=== PATIENT | female | born 1940 ===

== ENCOUNTER 2017-07-18 06:31 | Inpatient (IN) | payer MEDICARE ==
[2017-07-17 11:27] VITALS: BMI 23.8
[2017-07-18] MEDS ORDERED: Ropivacaine 0.5% 30ML IV ONE (07:03)
[2017-07-18] MEDS ORDERED: Propofol 10 mg/ml Inj (20 ML) ONE (07:06)
[2017-07-18] MEDS ORDERED: Succinylcholine 200 mg/10 ml Inj IV ONE (07:06)
[2017-07-18] MEDS ORDERED: Lidocaine 4% (Laryng-O-Jet) Kit MM ONE (07:06)
[2017-07-18] MEDS ORDERED: Etomidate 20 mg/10ml Inj IV ONE (07:07)
[2017-07-18] MEDS ORDERED: Phenylephrine 10 mg/ml Inj ONE (07:10)
[2017-07-18] MEDS ORDERED: Thrombin Topical 5,000 IU Spray Kit ONE (07:13)
[2017-07-18] MEDS ORDERED: Absorbable Gelatin Sponge Size 100 ONE (07:13)
[2017-07-18] MEDS ORDERED: Bacitracin Ointment 30 GM TUBE ONE (07:13)
[2017-07-18] MEDS ORDERED: Lactated Ringer's 1,000 ML IV ONE ×2 (07:45→11:15)
[2017-07-18] MEDS ORDERED: Sodium Chloride 0.9% 500 ML IV ONE (07:50)
[2017-07-18] MEDS ORDERED: Rocuronium 10 mg/ml (5 ml) ONE (08:30)
[2017-07-18] MEDS ORDERED: Neostigmine Methylsulfate 3mg/3ml Syringe IV ONE (09:17)
[2017-07-18] MEDS ORDERED: HYDROmorphone 0.5 mg/0.5 ml ISec IVP PRN (11:29)
--- NOTE | 2017-07-18 11:32 | PCM.ANESB2 ---
Popliteal Nerve Block - Popliteal Nerve Block Date of Procedure: 07/18/17 Anesthesiologist: Son Pre-Procedure Diagnosis: Left Knee OA Post-Procedure Diagnosis: same Procedure Performed: Popliteal Nerve Block Left - Procedure Popliteal Nerve Block: This procedure was explained to the patient that it is for post-operative pain management. Consent was obtained after a thorough discussion with the patient regarding the benefits and possible complications of local anesthetic block of the sciatic nerve at the popliteal level. The patient was brought to the operating room and standard monitors are applied. Time-out was held with the circulating nurse to confirm the correct surgery and the appropriate block. Under general anesthesia, patient's operative leg was gently raised and supported and the groove in between the biceps femoris and vastus lateralis muscles was carefully palpated. The skin approximately 8cm above the popliteal crease was then marked. The ultrasound transducer was then applied to the posterior thigh approximately 8cm above the popliteal crease in the transverse plane and the sciatic nerve before its division was visualized lateral to the popliteal artery and in between the bicep femoris and semimembranosus/ semitendinosus muscles. After identification, the lateral portion of the thigh was prepped with Chloraprep. At this point, a # 21 gauge Stimuplex insulated 4 inch needle was inserted into pre-marked area and advanced in a perpendicular direction. The needle was inserted above the ultrasound transducer in-plane towards the sciatic nerve in a [id number] direction. Needle advancement was performed carefully under direct ultrasound visualization. Nerve stimulator was used and dorsiflexion of the ___left__ foot was elicited at a current of __0.4___ MA. After repeated negative aspiration, __2___cc of ___0.375__ % ropivicaine was injected and this was flowed with ___15___ cc of ___0.375___% _ropivicaine . Under ultrasound guidance the local anesthetics were observed tenting the epidural sheath and surrounding the roots of the sciatic nerve. The needle was removed intact and sterile dressing was applied. The patient tolerated the popliteal nerve block well with stable vital signs and was subsequently prepared for the surgery.
--- NOTE | 2017-07-18 11:34 | PCM.ANESB3 ---
Femoral Nerve Block - Femoral Nerve Block Date of Procedure: 07/18/17 Anesthesiologist: Son Pre-Procedure Diagnosis: Left KNee OA Post-Procedure Diagnosis: Same Procedure Performed: Femoral Nerve Block Left - Procedure Femoral Nerve Block: The procedure was explained to the patient that it is for the post-operative pain management. Consent was obtained after a thorough discussion with the patient regarding the benefits and possible complications of local anesthetic block of the femoral nerve at the inguinal crease area. The patient was brought to the operating room and standard monitors were applied. Time-out was held with the circulating nurse to confirm the correct surgery and the appropriate block. Under general anesthesia, patient was placed in supine position with fully extended lower extremities and the ____left____ groin exposed. The femoral artery was then carefully palpated. The ultrasound transducer was then applied to this area in the transverse plane and the femoral nerve was visualized lateral to the femoral artery and underneath the fascia iliaca. After thorough identification, the inguinal crease area was prepped with Chloraprep. At this point, a #22 gauge Stimuplex 4-inch needle was inserted immediately lateral to the femoral artery pulse at the inguinal crease and advanced perpendicularly. The needle was inserted to the ultrasound transducer in-plane towards the femoral nerve in a [id number] direction. Needle advancement was performed carefully under direct ultrasound visualization. Nerve stimulator was used and twitch of the quadriceps muscle was obtained at current of __0.4___ MA. After negative aspiration, __2___cc of _0.375____% ropivicaine was injected and this was followed with __15____ cc of ___0.375____ % ___ _ropivicaine . Under ultrasound guidance the local anesthetics were observed spreading below fascia iliaca and around the femoral nerve. The needle was removed intact and sterile dressing was applied. The patient tolerated the femoral nerve block well with stable vital signs and was prepared for subsequent surgery.
--- NOTE | 2017-07-18 11:37 | PCM.SURG1 ---
Surgeon's Initial Post Op Note - Surgeon's Notes Surgeon: Vish [employer] Worker: CHANEL Romero Type of Anesthesia: General Endo Anesthesia Administered By: DR Tevin Bustos Pre-Operative Diagnosis: Severe tricompartmental O/A L Knee Operative Findings: as above. tricompartmental synovitis. looses bodies. postrerior capsual contracture. lateral patella contracture Post-Operative Diagnosis: as above Operation Performed: L TKR. arthrotomy/excision loose bodies. posterior capsular release. lateral patella release. anterior and posterior synovectomy Specimen/Specimens Removed: cartilage/synovium/bone Estimated Blood Loss: EBL {In ML}: 55 Blood Products Given: N/A Drains Used: No Drains Post-Op Condition: Good Date of Surgery/Procedure: 07/18/17 Time of Surgery/Procedure: 08:50 (time in room/anaesthesia induction time- 7:45)
--- NOTE | 2017-07-18 14:48 | CP.PCM.HP ---
History of Present Illness - History of Present Illness History of Present Illness: CC: for L TKR HPI: 77 year old female with PMH HTN and OA. Patient for L TKR after failing conservative treatment as outpatient. No complaints at this time. She is s/p L TKR. HD stable, NAD. ROS: per HPI, 12 systems reviewed and negative PMH: HTN, OA PSH: Appendectomy FH: denies SH: denies tobacco, ETOH, IVDU Meds: as below Allergies: NKDA Vitals: reviewed and currently stable Temp Pulse Resp BP Pulse Ox 97.7 F 72 18 115/67 100 07/18/17 11:25 07/18/17 13:10 07/18/17 13:10 07/18/17 13:10 07/18/17 13:10 Exam: GEN: WDWN, alert, cooperative HEENT: NCAT, PERRL, EOMI NECK: supple, no JVD, no lymphadenopathy CARDIAC: +S1S2 RRR LUNG: CTAB No WRR ABD: SOFT NT ND BSX4 NO MASSES NO HSM EXT: +pedal pulses, dressings in place NEURO: AAOx3 SKIN warm, dry PSYCH normal mood, normal affect Labs: reviewed and in chart Active Medications: Allergies No Known Allergies Allergy (Verified 07/17/17 11:27) Height & Weight Height 4 ft 6 in Weight 99 lb Start Date/Time Active Medications 07/18/17 11:30 Sodium Chloride 0.9% 1,000 ml IV 50 mls/hr 07/18/17 14:38 oxyCODONE/Acetaminophen [Percocet 5/325 mg Tab] 1 tab PO Q4 PRN 07/19/17 09:00 Lisinopril [Zestril] 20 mg PO DAILY Assessment and Plan: 77 year old female with PMH HTN and OA. Patient for L TKR after failing conservative treatment as outpatient. No complaints at this time. She is s/p L TKR. HD stable, NAD. S/P L TKR 2/2 OA Failed outpatient therapy incentive spirometry PT/OT Pain control Ancef 2 more doses repeat labs in AM Hypertension continue Lisinopril Cardiology consult: Dr. Haines VTE ppx per orthopedic surgery Present on Admission - Present on Admission Any Indicators Present on Admission: No Past Patient History - Past Medical History & Family History Past Medical History?: Yes - Past Social History Smoking Status: Never Smoked - CARDIAC Hx Cardiac Disorders: Yes Hx Hypertension: Yes - PULMONARY Hx Respiratory Disorders: No - NEUROLOGICAL Hx Neurological Disorder: No - HEENT Hx HEENT Problems: No - RENAL Hx Chronic Kidney Disease: No - ENDOCRINE/METABOLIC Hx Endocrine Disorders: No - HEMATOLOGICAL/ONCOLOGICAL Hx Blood Disorders: No Hx Anemia: No Hx Blood Transfusions: No - INTEGUMENTARY Hx Dermatological Problems: No - MUSCULOSKELETAL/RHEUMATOLOGICAL Hx Musculoskeletal Disorders: Yes Hx Arthritis: Yes Hx Back Pain: Yes Hx Falls: No Hx Rheumatoid Arthritis: Yes - GASTROINTESTINAL Hx Gastrointestinal Disorders: No - GENITOURINARY/GYNECOLOGICAL Hx Genitourinary Disorders: No - PSYCHIATRIC Hx Emotional Abuse: No Hx Physical Abuse: No - SURGICAL HISTORY Hx Surgeries: Yes Hx Appendectomy: Yes - ANESTHESIA Hx Anesthesia: Yes Hx Anesthesia Reactions: No Hx Malignant Hyperthermia: No Has any member of the family had a problem w/ anesthesia?: No Meds Allergies/Adverse Reactions: Allergies Allergy/AdvReac Type Severity Reaction Status Date / Time No Known Allergies Allergy Verified 07/17/17 11:27 Results - Vital Signs Recent Vital Signs: Last Vital Signs Temp 97.7 F 07/18/17 11:25 Pulse 72 07/18/17 13:10 Resp 18 07/18/17 13:10 BP 115/67 07/18/17 13:10 Pulse Ox 100 07/18/17 13:10 - Labs Labs: Laboratory Results - last 24 hr 07/18/17 07/18/17 07/18/17 06:50 07:45 11:46 POC Glucose (mg/dL) 129 H Blood Type O POSITIVE Blood Type Confirm O POSITIVE Antibody Screen Negative Crossmatch See Detail BBK History Checked No verified bt
--- NOTE | 2017-07-18 15:21 | RAD ---
PROCEDURE: Left Knee Radiographs. HISTORY: Pain. COMPARISON: None. FINDINGS: BONES: Bone alignment is normal. There is no acute displaced fracture or bone destruction. JOINTS: Status post total cemented knee arthroplasty. JOINT EFFUSION: None. OTHER FINDINGS: There are postsurgical changes in the periarticular soft tissues. There anterior skin maki. Atherosclerotic vascular calcifications are identified. IMPRESSION: Status post total cemented knee arthroplasty, no evidence of acute complications.
[2017-07-18] MEDS: Sodium Chloride 0.9% 1,000 ML IV SCH (15:40)
[2017-07-18] MEDS ORDERED: ceFAZolin 2 GM in Sodium Chloride 0.9% 100 ML IVPB SCH (17:00)
[2017-07-18] MEDS: ceFAZolin 1 GM in Sodium Chloride 0.9% 100 ML IVPB SCH (17:46)
[2017-07-18] MEDS: Oxycodone/Acetaminophen 5/325 mg Tab PO PRN ×2 (18:38→23:10)
[2017-07-18] MEDS ORDERED: Alum-Mag Hydrox-Simethicone Susp (30 mL) PO ONE (23:17)
[2017-07-19] MEDS: ceFAZolin 1 GM in Sodium Chloride 0.9% 100 ML IVPB SCH (00:33)
[2017-07-19 06:16] LABS: BASO # 0.1 K/uL (0.0-0.2); BASO % 0.6 % (0.0-2.0); EOS % 0.1 % (0.0-4.0); HEMATOCRIT 30.8 % (34.0-47.0); LYMPH # 2.1 K/uL (1.0-4.3); MEAN CELL VOLUME 83.9 fl (81.0-99.0); MEAN CORPUSCULAR HEMOGLOBIN 27.5 pg (27.0-31.0); MEAN CORPUSCULAR HGB CONC 32.8 g/dL (33.0-37.0); MEAN PLATELET VOLUME 9.1 fl (7.2-11.7); MONO # 1.3 K/uL (0.0-0.8); MONO % 14.7 % (0.0-10.0); NEUT # 5.3 K/uL (1.8-7.0); NEUT % 60.6 % (50.0-75.0); RED CELL DISTRIBUTION WIDTH 14.6 % (11.5-14.5); WHITE BLOOD COUNT 8.7 K/uL (4.8-10.8)
[2017-07-19 06:33] LABS: BLOOD UREA NITROGEN 13 mg/dl (7-17); CARBON DIOXIDE 26 mmol/L (22-30); CHLORIDE 104 mmol/L (98-107); GFR AFRICAN-AMERICAN > 60; GLUCOSE,RANDOM 109 mg/dL (65-105); POTASSIUM 3.3 MMOL/L (3.6-5.0); SODIUM 138 mmol/l (132-148)
--- NOTE | 2017-07-19 08:12 | CP.PCM.PN ---
Subjective - Date & Time of Evaluation Date of Evaluation: 07/19/17 Time of Evaluation: 08:10 - Subjective Subjective: S- pt comfortable/miinmal post op discomfort Objective - Vital Signs/Intake and Output Vital Signs (last 24 hours): Temp Pulse Resp BP Pulse Ox 98.4 F 65 20 123/80 94 L 07/19/17 08:03 07/19/17 08:03 07/19/17 08:03 07/19/17 08:03 07/19/17 08:03 - Medications Medications: Current Medications Sodium Chloride (Sodium Chloride 0.9%) 1,000 mls @ 50 mls/hr IV .Q20H [place] Last Admin: 07/18/17 15:40 Dose: 0 mls Lisinopril (Zestril) 20 mg PO DAILY [place] Ondansetron HCl (Zofran Inj) 4 mg IVP Q6 PRN PRN Reason: Nausea/Vomiting Oxycodone/Acetaminophen (Percocet 5/325 Mg Tab) 1 tab PO Q4 PRN PRN Reason: Pain, moderate (4-7) Stop: 07/21/17 14:39 Last Admin: 07/18/17 23:10 Dose: 1 tab - Labs Labs: 07/19/17 05:15 07/19/17 05:15 - Additional Findings Additional findings: Objective systemic-wnl Musculoskeletal stance/gait- defrred dressing dry andf intact Imp- orthopedically stable Assessment and Plan - Assessment and Plan (Free Text) Assessment: A- orthopedically stabl;e P- full weigth bearing physio
[2017-07-19] MEDS: Sodium Chloride 0.9% 1,000 ML IV SCH (08:35)
--- NOTE | 2017-07-19 08:37 | OP ---
PROCEDURE DATE: 07/18/2017 PREOPERATIVE DIAGNOSIS: Garden I to II subcapital fracture of the left femur. POSTOPERATIVE DIAGNOSES: 1. Garden I/Garden II subcapital left femur fracture. 2. Posttraumatic arthritis of the left hip, status post open reduction and internal fixation left acetabular fracture. 3. Closed manipulation of the fracture. 4. Positioning of fluoroscope, interpretation, and video images. SURGEON: Toni Wahl MD SOAKING TANK WORKER: TALHA Paul, certified registered nursing registered nurse first assistant. TYPE OF ANESTHESIA: General endotracheal anesthesia. ANESTHESIA ADMINISTERED BY: Tevin Cline MD COMPLICATIONS: No complications. DRAINS: No drains. INCISION TIME: Toni Wahl MD
[2017-07-19] MEDS: Oxycodone/Acetaminophen 5/325 mg Tab PO PRN ×4 (08:45→20:24)
[2017-07-19] MEDS ORDERED: Potassium Chloride 20 mEq ER Tab PO ONE (09:30)
--- NOTE | 2017-07-19 11:30 | CP.PCM.PN ---
Subjective - Date & Time of Evaluation Date of Evaluation: 07/19/17 Time of Evaluation: 10:00 - Subjective Subjective: Patient No fever post op pain controlleddenies CP no SOB no abd pain Objective - Vital Signs/Intake and Output Vital Signs (last 24 hours): Temp Pulse Resp BP Pulse Ox 98.4 F 87 20 119/69 94 L 07/19/17 08:03 07/19/17 09:59 07/19/17 08:03 07/19/17 09:59 07/19/17 08:03 - Medications Medications: Current Medications Sodium Chloride (Sodium Chloride 0.9%) 1,000 mls @ 50 mls/hr IV .Q20H [facility] Last Admin: 07/19/17 08:35 Dose: Not Given Lisinopril (Zestril) 20 mg PO DAILY [facility] Last Admin: 07/19/17 08:43 Dose: 20 mg Ondansetron HCl (Zofran Inj) 4 mg IVP Q6 PRN PRN Reason: Nausea/Vomiting Oxycodone/Acetaminophen (Percocet 5/325 Mg Tab) 1 tab PO Q4 PRN PRN Reason: Pain, moderate (4-7) Stop: 07/21/17 14:39 Last Admin: 07/19/17 08:45 Dose: 1 tab - Labs Labs: 07/19/17 05:15 07/19/17 05:15 - Constitutional Appears: No Acute Distress - Head Exam Head Exam: NORMAL INSPECTION, NORMOCEPHALIC - Eye Exam Eye Exam: EOMI, Normal appearance Pupil Exam: absent: NORMAL ACCOMODATION - ENT Exam ENT Exam: Mucous Membranes Moist, Normal External Ear Exam - Neck Exam Neck Exam: Full ROM. absent: Meningismus - Respiratory Exam Respiratory Exam: NORMAL BREATHING PATTERN. absent: Respiratory Distress - Cardiovascular Exam Cardiovascular Exam: REGULAR RHYTHM, +S1, +S2 - GI/Abdominal Exam GI & Abdominal Exam: Soft, Normal Bowel Sounds. absent: Tenderness - Extremities Exam Extremities Exam: Normal Capillary Refill. absent: Calf Tenderness, Pedal Edema Additional comments: left knee with dressing - Back Exam Back Exam: Full ROM. absent: CVA tenderness (L), CVA tenderness (R) - Neurological Exam Neurological Exam: Alert, Awake, CN II-XII Intact, Oriented x3 Neuro motor strength exam: Left Upper Extremity: 5, Right Upper Extremity: 5, Right Lower Extremity: 5 - Psychiatric Exam Psychiatric exam: Normal Affect, Normal Mood - Skin Skin Exam: Dry, Normal Color, Warm Assessment and Plan (1) S/P TKR (total knee replacement) Status: Acute (2) HTN (hypertension) Status: Chronic (3) Rheumatoid arthritis Status: Chronic (4) DVT prophylaxis Status: Acute - Assessment and Plan (Free Text) Assessment: 77 y/o with hx of RA, HTN, admitted for scheduled Left TKR after failing conservative outpt tx. (1) S/P Left TKR (total knee replacement) Status: Acute Ortho: Dr Wahl Pain mgt- cont Percocet PT/OT consult- plan for NEW (2) HTN (hypertension) Status: Chronic cont Lisinopril (3) Rheumatoid arthritis Status: Chronic follows up with [facility] as outpt on Prednisone as outpt- will hold for now Pain mgt (4) DVT prophylaxis Status: Acute ASA 81 mg bid
--- NOTE | 2017-07-19 12:18 | CP.PCM.CON ---
History of Present Illness - History of Present Illness History of Present Illness: THE PATIENT IS A 77 YEAR OLD FEMALE WHO HAS SEVERE OA WITH LEFT KNEE OA NOT RESPONING TO CONSERVATIVE TREATMENT WHO UNDERWENT A LEFT TKR BY DR ZAVALA YESTERDAY. SHE ALSO HAS A HISTORY OF HYPERTENSION. SHE DENIES ANY OTHER KNOWN MEDICAL PROBLEMS SUCH CAD, COPD OR DM. I WAS ASKED BY DR ZAVALA TO SEE AND FOLLOW THIS PATIENT IN THE HOSPITAL. SHE DENIES CHEST PAIN OR SOB. Past Patient History - Past Medical History & Family History Past Medical History?: Yes - Past Social History Smoking Status: Never Smoked - CARDIAC Hx Hypertension: Yes - PULMONARY Hx Respiratory Disorders: No - NEUROLOGICAL Hx Neurological Disorder: No - HEENT Hx HEENT Problems: No - RENAL Hx Chronic Kidney Disease: No - ENDOCRINE/METABOLIC Hx Endocrine Disorders: No - HEMATOLOGICAL/ONCOLOGICAL Hx Blood Disorders: No Hx Anemia: No Hx Blood Transfusions: No - INTEGUMENTARY Hx Dermatological Problems: No - MUSCULOSKELETAL/RHEUMATOLOGICAL Hx Arthritis: Yes Hx Rheumatoid Arthritis: Yes - GASTROINTESTINAL Hx Gastrointestinal Disorders: No - GENITOURINARY/GYNECOLOGICAL Hx Genitourinary Disorders: No - PSYCHIATRIC Hx Emotional Abuse: No Hx Physical Abuse: No - SURGICAL HISTORY Hx Surgeries: Yes Hx Appendectomy: Yes - ANESTHESIA Hx Anesthesia: Yes Hx Anesthesia Reactions: No Hx Malignant Hyperthermia: No Has any member of the family had a problem w/ anesthesia?: No Meds Allergies/Adverse Reactions: Allergies Allergy/AdvReac Type Severity Reaction Status Date / Time No Known Allergies Allergy Verified 07/17/17 11:27 - Medications Medications: Current Medications Aspirin (Ecotrin) 81 mg PO BID [place] Docusate Sodium (Colace) 100 mg PO BID [facility] Ferrous Sulfate (Feosol) 325 mg PO BID [facility] Sodium Chloride (Sodium Chloride 0.9%) 1,000 mls @ 50 mls/hr IV .Q20H [facility] Last Admin: 07/19/17 08:35 Dose: Not Given Lisinopril (Zestril) 20 mg PO DAILY [facility] Last Admin: 07/19/17 08:43 Dose: 20 mg Morphine Sulfate (Morphine) 1 mg IVP Q4 PRN PRN Reason: Pain, severe (8-10) Ondansetron HCl (Zofran Inj) 4 mg IVP Q6 PRN PRN Reason: Nausea/Vomiting Oxycodone/Acetaminophen (Percocet 5/325 Mg Tab) 1 tab PO Q4 PRN PRN Reason: Pain, moderate (4-7) Stop: 07/21/17 14:39 Last Admin: 07/19/17 11:45 Dose: 1 tab Physical Exam - Respiratory Exam Respiratory Exam: Clear to Auscultation Bilateral - Cardiovascular Exam Cardiovascular Exam: REGULAR RHYTHM, +S1, +S2 - Additional Findings Additional findings: ORHOPEDIC POST-OP NOTE REVIEWED K+ 3.3 Results - Vital Signs Recent Vital Signs: Last Vital Signs Temp 98.4 F 07/19/17 08:03 Pulse 87 07/19/17 09:59 Resp 20 07/19/17 08:03 BP 119/69 07/19/17 09:59 Pulse Ox 94 L 07/19/17 08:03 - Labs Result Diagrams: 07/19/17 05:15 07/19/17 05:15 Labs: Laboratory Results - last 24 hr 07/19/17 07/19/17 05:15 05:15 WBC 8.7 RBC 3.67 L Hgb 10.1 L Hct 30.8 L MCV 83.9 MCH 27.5 MCHC 32.8 L RDW 14.6 H Plt Count 162 MPV 9.1 Neut % (Auto) 60.6 Lymph % (Auto) 24.0 [place] % (Auto) 14.7 H Eos % (Auto) 0.1 Baso % (Auto) 0.6 Neut # 5.3 Lymph # 2.1 [place] # 1.3 H Eos # 0.0 Baso # 0.1 Sodium 138 Potassium 3.3 L Chloride 104 Carbon Dioxide 26 Anion Gap 11 BUN 13 Creatinine 0.9 Est GFR ( Amer) > 60 Est GFR (Non-Af Amer) > 60 Random Glucose 109 H Calcium 8.0 L Assessment & Plan - Assessment and Plan (Free Text) Assessment: S/P TOTAL LKR HYPERTENSION HYPOKALEMIA Plan: CONTINUE ASPIRIN, LISINOPRIL AND PAIN MEDS PATIENT GIVEN KCL BMP IN AM
[2017-07-19] MEDS: Pantoprazole 40 mg EC Tab PO SCH (16:27)
[2017-07-19 16:56] VITALS: O2SAT 95
--- NOTE | 2017-07-19 18:51 | OP ---
DATE OF SURGERY: 07/18/2017 PREOPERATIVE DIAGNOSES: Severe tricompartmental osteoarthritis of left knee and severe varus deformity. POSTOPERATIVE DIAGNOSES: 1. Loose bodies. 2. Severe varus deformity. 3. Severe tricompartmental osteoarthritis. 4. Posterior capsular contracture. 5. Lateral retinacular contracture. 6. Synovitis, anterior and posterior. OPERATIVE PROCEDURES: 1. Left total knee replacement arthroplasty. 2. Posterior capsular release. 3. Lateral patellar retinacular release. 4. Anterior and posterior synovectomy. 5. Computer navigation. SURGEON: Toni Wahl MD CATERING SOUS CHEF: Charisse Roberson, certified registered nursing director of first impressions. SECOND PRODUCTION TEAM MANAGER: Dick Mendoza. ESTIMATED BLOOD LOSS: Approximately 100 mL. No complications. No drains. OPERATIVE INDICATION: Ashlyn Boss is a patient who is well-known to my practice who presents having failed conservative management of osteoarthritis. Pros, cons, risks, and benefits of surgical approach were discussed with the patient in the presence of her daughters with counseling and competent network design architect. Possibility of mechanical failure, infection, thromboembolic disease, secondary or tertiary surgery were discussed. The patient can only understand the discomfort and wishes the surgery to be accomplished. DESCRIPTION OF PROCEDURE: After having obtained informed consent, after having identified site, side, and procedure, and a critical pause/time-out after satisfactory induction of the anesthetic, the patient identified as Ashlyn Boss, in the supine position with all bony prominences were well padded. The left lower extremity was prepped and free draped in usual fashion for lower extremity surgery. Tourniquet had been applied but is not yet inflated. After exsanguinating the limb using a 6-inch Esmarch bandage, the tourniquet which had been applied was inflated to 350 mmHg. A straight midline approach was made to the knee. The skin incision was carried down to the skin and subcutaneous tissue. Medial arthrotomy was accomplished. The patella was everted. The knee was flexed. Medial and lateral meniscectomies were accomplished. Anterior and posterior cruciate ligaments were excised. The tibia was dislocated anteriorly and initial osteotomy was accomplished on the tibial side. Computer navigation commenced at this point in time. The anterior strut was placed on the anterior aspect of tibia and the offset was set with the stylus at the posterior insertion of the anterior cruciate ligament. The medial malleolus was registered and lateral malleolus. The tibial cut was set at 0 degrees varus valgus and 3 degrees of posterior slope. This having been accomplished, the proximal tibia was prepared. Guidance to rotation of the tibia on the lateral aspect with tibial condyle, mid malleolar access, medial third of the tibial tuberosity. Attention was turned to the femur. Navigation was employed as well for 0 degrees varus valgus cut, 0.5 degrees of flexion. The guidepin was placed above the intercondylar notch. The distal cutting guide was placed and pinned. Accelerometer and sensor were placed. The hip center was registered. The distal cut was set to 9 mm. The distal osteotomy was accomplished. Anterior-posterior sizing was 1 to 1.5 size in the sphere system. This having been accomplished, the 4:1 block was affixed to distal aspect of the finger. Anterior and posterior cruciate ligaments were excised. Chamfer cuts were accomplished as well as anterior and posterior osteotomies. Anterior and posterior osteotomies having been accomplished, chamfer cuts having been accomplished, the planer was set and the planing was accomplished. Femoral trial was accomplished with the tibial plate, #1.5 femur, 5.2 tibia and a 17 mm medial sphere insert. This having been accomplished, the wound was thoroughly irrigated. Anterior and posterior synovectomies having been accomplished, a posterior capsule was released. There was found to be a posterior capsular contracture. Prior to trialing, the laminar plow and boring machine tender was placed and the posterior capsule was elevated from the posterior aspect of the femur. Hemostasis was controlled with the Aquamantys. This having been accomplished, the wound was thoroughly irrigated. Anterior and posterior synovectomy was accomplished. Medial and lateral meniscectomies had been accomplished. Trialing was accomplished, flexion and extension balance was excellent. This having been accomplished, there was found to be a lateral patellar retinacular contracture. A lateral patellar retinacular release was accomplished from inside out. Hemostasis was controlled with the Aquamantys. Patella was sized to 32 mm. The patella was reamed and placed. The wound was thoroughly irrigated. Patella balance was found to be excellent. Flexion and extension balance was found to be excellent. The femur, tibia and patella were prepared. The #2 cemented tibial component was applied. The #1.5 femoral component was applied. A 17 mm medial tibial insert was inserted and the patella was cemented as well. The wound was thoroughly irrigated. Tourniquet was deflated. Hemostasis was controlled with the Aquamantys and with the electrocautery. This having been accomplished, the wound was thoroughly irrigated. Closure was in layers with #2 Ethibond, #1 Vicryl, 0 Vicryl, 2-0 Vicryl and maki for skin, Uzair Edwards compression dressing and knee immobilizer were applied. Toni Wahl MD
[2017-07-20] MEDS: Sodium Chloride 0.9% 1,000 ML IV SCH (03:00)
[2017-07-20 07:35] VITALS: BP 137/77; RESP 18
[2017-07-20 08:05] LABS: BLOOD UREA NITROGEN 8 mg/dl (7-17); GFR AFRICAN-AMERICAN > 60; GLUCOSE,RANDOM 119 mg/dL (65-105); POTASSIUM 3.7 MMOL/L (3.6-5.0); SODIUM 137 mmol/l (132-148)
[2017-07-20 08:06] LABS: CALCIUM 8.4 mg/dL (8.4-10.2); CARBON DIOXIDE 24 mmol/L (22-30); CHLORIDE 104 mmol/L (98-107)
[2017-07-20] MEDS: Oxycodone/Acetaminophen 5/325 mg Tab PO PRN (08:32)
[2017-07-20] MEDS: Pantoprazole 40 mg EC Tab PO SCH (08:32)
[2017-07-20 08:34] VITALS: PULSE 102
[2017-07-20 08:38] VITALS: TEMP 99.8
[2017-07-20] MEDS ORDERED: Sodium Chloride 0.9% 250 ML IV SCH (09:00)
--- NOTE | 2017-07-20 10:27 | CP.PCM.DIS ---
Provider - Provider Date of Admission: 07/18/17 14:38 Attending physician: Marcela Ahn DO Primary care physician: Toni Wahl III, MD Consults: Ortho: Dr Wahl Cardio : Dr Haines Time Spent in preparation of Discharge (in minutes): 25 Diagnosis - Discharge Diagnosis (1) S/P TKR (total knee replacement) Status: Acute (2) HTN (hypertension) Status: Chronic (3) Rheumatoid arthritis Status: Chronic (4) DVT prophylaxis Status: Acute Hospital Course - Lab Results Lab Results: Most Recent Lab Values WBC 8.7 K/uL (4.8-10.8) 07/19/17 05:15 RBC 3.67 Mil/uL (3.80-5.20) L 07/19/17 05:15 Hgb 10.1 g/dL (12.0-16.0) L 07/19/17 05:15 Hct 30.8 % (34.0-47.0) L 07/19/17 05:15 MCV 83.9 fl (81.0-99.0) 07/19/17 05:15 MCH 27.5 pg (27.0-31.0) 07/19/17 05:15 MCHC 32.8 g/dL (33.0-37.0) L 07/19/17 05:15 RDW 14.6 % (11.5-14.5) H 07/19/17 05:15 Plt Count 162 K/uL (130-400) 07/19/17 05:15 MPV 9.1 fl (7.2-11.7) 07/19/17 05:15 Neut % (Auto) 60.6 % (50.0-75.0) 07/19/17 05:15 Lymph % (Auto) 24.0 % (20.0-40.0) 07/19/17 05:15 Placer % (Auto) 14.7 % (0.0-10.0) H 07/19/17 05:15 Eos % (Auto) 0.1 % (0.0-4.0) 07/19/17 05:15 Baso % (Auto) 0.6 % (0.0-2.0) 07/19/17 05:15 Neut # 5.3 K/uL (1.8-7.0) 07/19/17 05:15 Lymph # 2.1 K/uL (1.0-4.3) 07/19/17 05:15 Placer # 1.3 K/uL (0.0-0.8) H 07/19/17 05:15 Eos # 0.0 K/uL (0.0-0.7) 07/19/17 05:15 Baso # 0.1 K/uL (0.0-0.2) 07/19/17 05:15 Sodium 137 mmol/l (132-148) 07/20/17 05:30 Potassium 3.7 MMOL/L (3.6-5.0) 07/20/17 05:30 Chloride 104 mmol/L (98-107) 07/20/17 05:30 Carbon Dioxide 24 mmol/L (22-30) 07/20/17 05:30 Anion Gap 12 (10-20) 07/20/17 05:30 BUN 8 mg/dl (7-17) 07/20/17 05:30 Creatinine 0.8 mg/dL (0.7-1.2) 07/20/17 05:30 Est GFR ( Amer) > 60 07/20/17 05:30 Est GFR (Non-Af Amer) > 60 07/20/17 05:30 POC Glucose (mg/dL) 129 mg/dL (65-110) H 07/18/17 11:46 Random Glucose 119 mg/dL (65-105) H 07/20/17 05:30 Calcium 8.4 mg/dL (8.4-10.2) 07/20/17 05:30 Blood Type O POSITIVE 07/18/17 06:50 Blood Type Confirm O POSITIVE 07/18/17 07:45 Antibody Screen Negative 07/18/17 06:50 Crossmatch See Detail 07/18/17 06:50 BBK History Checked No verified bt 07/18/17 06:50 - Hospital Course Hospital Course: 77 y/o with hx of RA, HTN, admitted for scheduled Left TKR after failing conservative outpt tx. Pt underwent Left TKR . No complications. Pt did well post op, participated with PT. Pain controlled. will d/c pt to [facility] for further PT. (1) S/P Left TKR (total knee replacement) Status: Acute Ortho: Dr Boiardo Pain mgt- cont Percocet- pain controlled PT/OT consulted will d/c to [facility] today (2) HTN (hypertension) controlled Status: Chronic cont Lisinopril (3) Rheumatoid arthritis Status: Chronic follows up with [facility] as outpt on Prednisone as outpt Pain mgt (4) DVT prophylaxis Status: Acute ASA 81 mg bid Discharge Exam - Head Exam Head Exam: NORMAL INSPECTION, NORMOCEPHALIC - Eye Exam Eye Exam: EOMI, Normal appearance Pupil Exam: NORMAL ACCOMODATION - ENT Exam ENT Exam: Mucous Membranes Moist, Normal External Ear Exam - Neck Exam Neck exam: Full Rom - Respiratory Exam Respiratory Exam: NORMAL BREATHING PATTERN. absent: Respiratory Distress - Cardiovascular Exam Cardiovascular Exam: REGULAR RHYTHM, +S1, +S2 - GI/Abdominal Exam GI & Abdominal Exam: Normal Bowel Sounds, Soft. absent: Tenderness - Extremities Exam Extremities exam: normal capillary refill, pedal pulses present Additional comments: no calf tenderness Left knee with immobilizer - Back Exam Back exam: FULL ROM. absent: CVA tenderness (L), CVA tenderness (R) - Neurological Exam Neurological exam: Alert, CN II-XII Intact, Oriented x3, Reflexes Normal - Psychiatric Exam Psychiatric exam: Normal Affect, Normal Mood - Skin Skin Exam: Dry, Normal Color, Warm Discharge Plan - Follow Up Plan Condition: GOOD Disposition: TRANSF TO SNF Instructions: Precautions after Total Joint Replacement Surgery (DC), Knee Immobilizer (DC), Joint Replacement Surgery (DC) Additional Instructions: appt with Dr Wahl in 1 wk ff up with PMD mignon Referrals: Toni Wahl III, MD [Primary Care Provider] -
--- NOTE | 2017-07-20 10:40 | CP.PCM.PN ---
Subjective - Date & Time of Evaluation Date of Evaluation: 07/20/17 Time of Evaluation: 10:35 - Subjective Subjective: S-pt with minimal post op discomfort Objective - Vital Signs/Intake and Output Vital Signs (last 24 hours): Temp Pulse Resp BP Pulse Ox 99.8 F H 102 H 18 137/77 95 07/20/17 08:38 07/20/17 08:33 07/20/17 07:34 07/20/17 08:33 07/20/17 07:34 - Medications Medications: Current Medications Aspirin (Ecotrin) 81 mg PO BID [facility] Last Admin: 07/20/17 08:33 Dose: 81 mg Docusate Sodium (Colace) 100 mg PO BID [facility] Last Admin: 07/20/17 08:32 Dose: 100 mg Ferrous Sulfate (Feosol) 325 mg PO BID [facility] Last Admin: 07/20/17 08:33 Dose: 325 mg Sodium Chloride (Sodium Chloride 0.9%) 1,000 mls @ 50 mls/hr IV .Q20H [facility] Last Admin: 07/20/17 03:00 Dose: 50 mls/hr Sodium Chloride (Sodium Chloride 0.9%) 250 mls @ 125 mls/hr IV .Q2H [facility] Lisinopril (Zestril) 20 mg PO DAILY [facility] Last Admin: 07/20/17 08:33 Dose: 20 mg Morphine Sulfate (Morphine) 1 mg IVP Q4 PRN PRN Reason: Pain, severe (8-10) Last Admin: 07/20/17 02:54 Dose: 1 mg Ondansetron HCl (Zofran Inj) 4 mg IVP Q6 PRN PRN Reason: Nausea/Vomiting Oxycodone/Acetaminophen (Percocet 5/325 Mg Tab) 1 tab PO Q4 PRN PRN Reason: Pain, moderate (4-7) Stop: 07/21/17 14:39 Last Admin: 07/20/17 08:32 Dose: 1 tab Pantoprazole Sodium (Protonix Ec Tab) 40 mg PO DAILY [facility] Last Admin: 07/20/17 08:32 Dose: 40 mg - Labs Labs: 07/19/17 05:15 07/20/17 05:30 - Skin Skin Exam: Warm Additional comments: Objective stance./gait-deferred knee dressing dry and intact orthopedically stable Assessment and Plan - Assessment and Plan (Free Text) Assessment: A-s/p TKR P full weiogth bearing excllent progress orthopedically stable
== END 2017-07-20 14:55 | DRG 470 ==
LOC: H.OPSURG 06:31 → H.MEDSURG1 14:38
PROVIDERS: ADMIT Student in an Organized Health Care Education/Training Program; ATTEND Student in an Organized Health Care Education/Training Program
PROC: 0SRD0J9 Replacement of Left Knee Joint with Synthetic Substitute, Cemented, Open Approach (ICD-10-PCS; principal; 2017-07-18 07:45)
PROC: 3E0T3BZ Introduction of Anesthetic Agent into Peripheral Nerves and Plexi, Percutaneous Approach (ICD-10-PCS; 2017-07-18 07:45)
DX: M17.12 Unilateral primary osteoarthritis, left knee (principal); M06.89 Other specified rheumatoid arthritis, multiple sites; E87.6 Hypokalemia; M65.862 Other synovitis and tenosynovitis, left lower leg; M23.42 Loose body in knee, left knee; I10 Essential (primary) hypertension; Z79.82 Long term (current) use of aspirin

== ENCOUNTER 2017-10-17 06:30 | Inpatient (IN) | payer MEDICARE ==
[2017-10-17 06:56] VITALS: BMI 21.4
--- NOTE | 2017-10-17 09:10 | CP.PCM.HP ---
History of Present Illness - History of Present Illness History of Present Illness: CC: for L TKR HPI: 77 year old female with PMH HTN, SLE, RA, Hyperlipidemia, and OA. S/P L total knee with Dr. Vish orellana 3 months ago. Patient for R total knee after failing conservative treatment as outpatient. No complaints at this time. HD stable, NAD. Denies any dyspnea or cp at rest or on exertion. METs >4. ROS: per HPI, 12 systems reviewed and negative PMH: HTN, SLE, RA, Hyperlipidemia, and OA PSH: Appendectomy, s/p L total knee FH: denies SH: denies tobacco, ETOH, IVDU Meds: as below Allergies: NKDA GENERAL APPEARANCE: Well developed, well nourished, alert and cooperative, and appears to be in no acute distress. HEENT: normocephalic, atraumatic PERRL, EOMI. Vision is grossly intact. External auditory canals clear, hearing grossly intact. No nasal discharge. Oral cavity and pharynx normal. No inflammation, swelling, exudate, or lesions. NECK: Neck supple, non-tender without lymphadenopathy, masses or thyromegaly. CARDIAC: Normal S1 and S2. No S3, S4 or murmurs. Rhythm is regular. LUNGS: Clear to auscultation and percussion without rales, rhonchi, wheezing or diminished breath sounds. ABDOMEN: Positive bowel sounds. Soft, nondistended, nontender. No guarding or rebound. No masses. BACK: Examination of the spine reveals no spinal deformity, symmetry of spinal muscles, EXTREMITIES: warm well perfused. NV intact NEUROLOGICAL: Strength and sensation symmetric and intact throughout. Reflexes 2 + throughout. SKIN: Skin normal color, texture and turgor with no lesions or eruptions. PSYCHIATRIC: The patient was oriented to person, place, and time. Normal affect. LABS REVIEWED 77 year old female with PMH HTN, SLE, RA, Hyperlipidemia, and OA. S/P L total knee with Dr. Vish orellana 3 months ago. Patient for R total knee after failing conservative treatment as outpatient. No complaints at this time. HD stable, NAD. Denies any dyspnea or cp at rest or on exertion. METs >4. Pt medically stable for OR, low risk for mod risk procedure. Osteoarthritis R Knee for OR today with Dr. Wahl Continue pain control Incentive spirometer Ancef two more doses PPX PT OT VTE ppx per Ortho HTN continue enalapril RA/SLE continue predisone Present on Admission - Present on Admission Any Indicators Present on Admission: No Past Patient History - Past Medical History & Family History Past Medical History?: Yes - Past Social History Smoking Status: Never Smoked - CARDIAC Hx Cardiac Disorders: Yes Hx Hypertension: Yes - PULMONARY Hx Respiratory Disorders: No - NEUROLOGICAL Hx Neurological Disorder: No - HEENT Hx HEENT Problems: No - RENAL Hx Chronic Kidney Disease: No - ENDOCRINE/METABOLIC Hx Endocrine Disorders: No - HEMATOLOGICAL/ONCOLOGICAL Hx Blood Disorders: No Hx Anemia: No Hx Blood Transfusions: No - INTEGUMENTARY Hx Dermatological Problems: No - MUSCULOSKELETAL/RHEUMATOLOGICAL Hx Musculoskeletal Disorders: Yes Hx Arthritis: Yes Hx Back Pain: Yes Hx Falls: No Hx Herniated Disk: Yes Hx Rheumatoid Arthritis: Yes - GASTROINTESTINAL Hx Gastrointestinal Disorders: No Other/Comment: esophageal hernia - GENITOURINARY/GYNECOLOGICAL Hx Genitourinary Disorders: No - PSYCHIATRIC Hx Psychophysiologic Disorder: No Hx Emotional Abuse: No Hx Physical Abuse: No - SURGICAL HISTORY Hx Surgeries: Yes Hx Appendectomy: Yes Hx Joint Replacement: Yes (LEFT KNEE) - ANESTHESIA Hx Anesthesia: Yes Hx Anesthesia Reactions: No Hx Malignant Hyperthermia: No Has any member of the family had a problem w/ anesthesia?: No Meds Allergies/Adverse Reactions: Allergies Allergy/AdvReac Type Severity Reaction Status Date / Time No Known Allergies Allergy Verified 10/17/17 06:56 Results - Vital Signs Recent Vital Signs: Last Vital Signs Temp 97.9 F 10/17/17 07:00 Pulse 65 10/17/17 07:00 Resp 18 10/17/17 07:00 BP 153/82 H 10/17/17 07:00 Pulse Ox 99 10/17/17 07:00
[2017-10-17] MEDS ORDERED: Lactated Ringer's 1,000 ML IV ONE ×2 (09:44→15:08)
[2017-10-17] MEDS ORDERED: SENSORCAINE 0.5% W/EPINEPHRINE 50ML MDV IJ ONE (12:06)
[2017-10-17] MEDS ORDERED: Etomidate 20 mg/10ml Inj IV ONE (12:12)
[2017-10-17] MEDS ORDERED: Succinylcholine 200 mg/10 ml Inj IV ONE (12:12)
[2017-10-17] MEDS ORDERED: Rocuronium 10 mg/ml (5 ml) ONE ×2 (12:12→12:15)
[2017-10-17] MEDS ORDERED: Propofol 10 mg/ml Inj (20 ML) ONE (12:12)
[2017-10-17] MEDS ORDERED: ceFAZolin IV 1 gm in Dextrose 2 GM/100 ML BAG IVPB ONE (12:26)
[2017-10-17] MEDS ORDERED: Bisacodyl 5mg EC Tab PO PRN (13:28)
[2017-10-17] MEDS ORDERED: Sodium Chloride 0.9% 1,000 ML IV SCH (14:15)
[2017-10-17] MEDS ORDERED: Neostigmine Methylsulfate 3mg/3ml Syringe IV ONE (14:49)
[2017-10-17] MEDS ORDERED: Sodium Bicarbonate 8.4% 10 MEQ/10 ML (PED) IV ONE (14:51)
[2017-10-17] MEDS ORDERED: HYDROmorphone 0.5 mg/0.5 ml ISec IVP PRN (15:34)
--- NOTE | 2017-10-17 16:16 | RAD ---
PROCEDURE: Right Knee Radiographs. HISTORY: s/p right tkr COMPARISON: None. FINDINGS: The patient is status post total right knee arthroplasty with prosthetic components seen in good alignment. A small amount expected air and fluid is seen in the suprapatellar bursa. Skin maki are present anteriorly. IMPRESSION: Status post total right knee arthroplasty.
[2017-10-17] MEDS ORDERED: ceFAZolin IV 1 gm in Dextrose 1 GM/50 ML BAG IVPB SCH (17:00)
--- NOTE | 2017-10-17 17:21 | PCM.SURG1 ---
Surgeon's Initial Post Op Note - Surgeon's Notes Surgeon: Vish Supervisor Wool Shearing: CHANEL Romero Type of Anesthesia: General Endo, Spinal Anesthesia Administered By: DR Campbell Pre-Operative Diagnosis: Tricompartmental O/A Right knee Operative Findings: as above. tricoipartmental synovitis. posterior capsular contracture. lateral patella contracture. loose body Post-Operative Diagnosis: as above Operation Performed: arthrotmy/excision olose bodyR TKR. posterior capsular release. lateral patella release. anterior and posterior synovectomy\. agustin navigation Specimen/Specimens Removed: synovium/cartilage/bone Estimated Blood Loss: EBL {In ML}: 50 Blood Products Given: N/A Drains Used: No Drains Post-Op Condition: Good Date of Surgery/Procedure: 10/17/17 Time of Surgery/Procedure: 13:35 (time eliza room 12:35)
--- NOTE | 2017-10-17 17:39 | PCM.ANESB3 ---
Femoral Nerve Block - Femoral Nerve Block Date of Procedure: 10/17/17 Anesthesiologist: Son Pre-Procedure Diagnosis: Right knee RA/OA Post-Procedure Diagnosis: Same Procedure Performed: Femoral Nerve Block Right - Procedure Femoral Nerve Block: The procedure was explained to the patient that it is for the post-operative pain management. Consent was obtained after a thorough discussion with the patient regarding the benefits and possible complications of local anesthetic block of the femoral nerve at the inguinal crease area. The patient was brought to the operating room and standard monitors were applied. Time-out was held with the circulating nurse to confirm the correct surgery and the appropriate block. Under general anesthesia, at the conclusion of the procedure, patient was placed in supine position with fully extended lower extremities and the ___ right groin exposed. The femoral artery was then carefully palpated. The ultrasound transducer was then applied to this area in the transverse plane and the femoral nerve was visualized lateral to the femoral artery and underneath the fascia iliaca. After thorough identification, the inguinal crease area was prepped with Chloraprep. At this point, a #22 gauge Stimuplex 2-inch needle was inserted immediately lateral to the femoral artery pulse at the inguinal crease and advanced perpendicularly. The needle was inserted to the ultrasound transducer in-plane towards the femoral nerve in a [id number] direction. Needle advancement was performed carefully under direct ultrasound visualization. Nerve stimulator was used and twitch of the quadriceps muscle was obtained at current of __0.4___ MA. After negative aspiration, __2___cc of __0.375___% ____bupivicaine with 1: 200,000 epinephrine was injected and this was followed with ___ 18___ cc of ___0.375____ % ____bupivicaine with 1:200,000 epinephrine . Under ultrasound guidance the local anesthetics were observed spreading below fascia iliaca and around the femoral nerve. The needle was removed intact. The patient had stable vital signs, and prepared for emergence The patient tolerated the femoral nerve block well.
--- NOTE | 2017-10-17 17:47 | PCM.ANESB2 ---
Popliteal Nerve Block - Popliteal Nerve Block Date of Procedure: 10/17/17 Anesthesiologist: Son Pre-Procedure Diagnosis: Right knee RA/OA Post-Procedure Diagnosis: Same Procedure Performed: Popliteal Nerve Block Right - Procedure Popliteal Nerve Block: This procedure was explained to the patient that it is for post-operative pain management. Consent was obtained after a thorough discussion with the patient regarding the benefits and possible complications of local anesthetic block of the sciatic nerve at the popliteal level. The patient was brought to the operating room and standard monitors are applied. Time-out was held with the circulating nurse to confirm the correct surgery and the appropriate block. Under general anesthesia, at the conclusion of the procedure, patient's operative leg was gently raised and supported and the groove in between the biceps femoris and vastus lateralis muscles was carefully palpated. The skin approximately 8cm above the popliteal crease was then marked. The ultrasound transducer was then applied to the posterior thigh approximately 8cm above the popliteal crease in the transverse plane and the sciatic nerve before its division was visualized lateral to the popliteal artery and in between the bicep femoris and semimembranosus/semitendinosus muscles. After identification, the lateral portion of the thigh was prepped with Chloraprep. At this point, a # 21 gauge Stimuplex insulated 4 inch needle was inserted into pre-marked area and advanced in a perpendicular direction. The needle was inserted above the ultrasound transducer in-plane towards the sciatic nerve in a [id number] direction. Needle advancement was performed carefully under direct ultrasound visualization. Nerve stimulator was used and dorsiflexion of the _right____ foot was elicited at a current of __0.4___ MA. After repeated negative aspiration, __2___cc of __0.375___ % ____bupivicaine with 1:200,000 epinephrine was injected and this was flowed with __18____ cc of __ 0.375____% ____bupivicaine with 1:200,000 epinephrine . Under ultrasound guidance the local anesthetics were observed surrounding sciatic nerve . The needle was removed intact and the patient was prepared for emergence. The patient tolerated the popliteal nerve block well with stable vital signs.
[2017-10-17] MEDS ORDERED: Pneumococcal 23-Valent Vaccine IM ONE (19:05)
[2017-10-17] MEDS: ceFAZolin IV 1 gm in Dextrose 1 GM/50 ML BAG IVPB SCH (21:00)
[2017-10-17] MEDS ORDERED: Hydrocortisone- 100 MG in Sodium Chloride 0.9% 100 ML IV SCH (21:00)
[2017-10-17] MEDS: Oxycodone/Acetaminophen 5/325 mg Tab PO PRN (21:28)
[2017-10-17] MEDS: Lactated Ringer's 1,000 ML IV SCH (21:40)
[2017-10-18] MEDS: Oxycodone/Acetaminophen 5/325 mg Tab PO PRN ×2 (04:26→13:48)
[2017-10-18] MEDS: ceFAZolin IV 1 gm in Dextrose 1 GM/50 ML BAG IVPB SCH (04:27)
[2017-10-18 06:56] LABS: HEMATOCRIT 30.6 % (34.0-47.0); MEAN CELL VOLUME 83.9 fl (81.0-99.0); MEAN CORPUSCULAR HEMOGLOBIN 27.5 pg (27.0-31.0); MEAN CORPUSCULAR HGB CONC 32.8 g/dL (33.0-37.0); RED CELL DISTRIBUTION WIDTH 15.1 % (11.5-14.5)
[2017-10-18 07:32] LABS: BLOOD UREA NITROGEN 12 mg/dl (7-17); CALCIUM 8.3 mg/dL (8.4-10.2); CARBON DIOXIDE 28 mmol/L (22-30); CHLORIDE 106 mmol/L (98-107); GFR AFRICAN-AMERICAN > 60; GLUCOSE,RANDOM 121 mg/dL (65-105); POTASSIUM 3.8 MMOL/L (3.6-5.0); SODIUM 142 mmol/l (132-148)
[2017-10-18 08:04] VITALS: BP 110/64; PULSE 73; RESP 18; TEMP 98.4; O2SAT 96
[2017-10-18] MEDS ORDERED: Calcium-Vit D 250 mg-125 Units Tab UD PO SCH (09:00)
[2017-10-18] MEDS ORDERED: Multivitamin With Minerals Tab PO SCH (09:00)
[2017-10-18] MEDS ORDERED: Pantoprazole 20 mg EC Tab PO SCH (09:00)
--- NOTE | 2017-10-18 10:33 | CP.PCM.PN ---
Subjective - Date & Time of Evaluation Date of Evaluation: 10/18/17 Time of Evaluation: 10:30 - Subjective Subjective: Patient states her leg is still numb, and she can not move her toes much yet. Denies CP/SOB/dizziness. With PT during exam. tolerating well. Objective - Vital Signs/Intake and Output Vital Signs (last 24 hours): Temp Pulse Resp BP Pulse Ox 98.4 F 73 18 110/64 96 10/18/17 08:03 10/18/17 08:03 10/18/17 08:03 10/18/17 08:03 10/18/17 08:03 - Medications Medications: Current Medications Acetaminophen (Tylenol 325mg Tab) 650 mg PO Q4 PRN PRN Reason: Fever 101 degrees fahrenheit Bisacodyl (Dulcolax) 10 mg PO DAILY PRN PRN Reason: Constipation Calcium/Vitamin D (Oscal-D 250 Mg-125 Units Tab) 1 tab PO DAILY [facility] Last Admin: 10/18/17 09:31 Dose: 1 tab Docusate Sodium (Colace) 100 mg PO BID [facility] Last Admin: 10/18/17 09:31 Dose: 100 mg Enalapril Maleate (Vasotec) 2.5 mg PO DAILY [facility] Last Admin: 10/18/17 09:38 Dose: 2.5 mg Hydrocortisone Sodium Succinate (Solu-Cortef) 100 mg IV Q8@0500,1100,1900 [facility] Last Admin: 10/18/17 05:22 Dose: 100 mg Sodium Chloride (Sodium Chloride 0.9%) 1,000 mls @ 40 mls/hr IV .Q24H [facility] Stop: 10/18/17 14:14 Last Admin: 10/17/17 21:37 Dose: Not Given Lactated Ringer's (Lactated Ringer's) 1,000 mls @ 50 mls/hr IV .Q20H [facility] Last Admin: 10/17/17 21:40 Dose: 50 mls/hr Morphine Sulfate (Morphine) 2 mg IVP Q4 PRN PRN Reason: Pain, severe (8-10) Multivitamins/Minerals (Therapeutic-M Tab) 1 tab PO DAILY [facility] Last Admin: 10/18/17 09:31 Dose: 1 tab Ondansetron HCl (Zofran Inj) 4 mg IVP Q6 PRN PRN Reason: Nausea/Vomiting Oxycodone/Acetaminophen (Percocet 5/325 Mg Tab) 1 tab PO Q4 PRN PRN Reason: Pain, moderate (4-7) Stop: 10/20/17 14:13 Last Admin: 10/18/17 04:26 Dose: 1 tab Pantoprazole Sodium (Protonix Ec Tab) 20 mg PO DAILY [facility] Last Admin: 10/18/17 09:31 Dose: 20 mg Prednisone (Prednisone Tab) 5 mg PO DAILY [facility] Last Admin: 10/18/17 09:31 Dose: 5 mg - Labs Labs: 10/18/17 06:15 10/18/17 06:15 - Extremities Exam Additional comments: RLE: minimal toe flexion still numb +DP pulse calves soft NT neg homans dressing intact, no visible drainage Assessment and Plan (1) Primary osteoarthritis of right knee Assessment & Plan: POD#1 s/p right TKR -VTE proph with aspirin per Dr. Barrow -PT/OT-d/c planning -labs reviewed -d/w Dr. Wahl, agrees with above Status: Acute
[2017-10-18] MEDS: Lactated Ringer's 1,000 ML IV SCH (12:09)
--- NOTE | 2017-10-18 13:07 | OP ---
PROCEDURE DATE: 10/17/2017 SURGEON: Toni Wahl MD SOFTWARE ENGINEER DEVELOPER: Charisse Roberson, certified registered nursing commercial lending assistant. TYPE OF ANESTHESIA: General endotracheal anesthesia and spinal anesthesia. ANESTHESIA ADMINISTERED BY: Tevin Cline MD PREOPERATIVE DIAGNOSIS: Severe tricompartmental osteoarthritis of the right knee. POSTOPERATIVE DIAGNOSES: 1. Tricompartmental osteoarthritis of the right knee. 2. Tricompartmental synovitis. 3. Posterior capsular contracture. 4. Lateral patellar contracture. 5. Loose body. OPERATION PERFORMED 1. Right total knee replacement arthroplasty with computer navigation. 2. Arthrotomy, excision of loose body. 3. Anterior and posterior synovectomy. 4. Posterior capsular release. 5. Lateral patellar retinacular release. 6. Computer navigation. SPECIMEN: Synovium, cartilage, and bone. ESTIMATED BLOOD LOSS: 50 mL. BLOOD PRODUCTS GIVEN: None. DRAINS: None. POSTOPERATIVE CONDITION: Stable TIME IN THE ROOM: 1235, anesthesia induction time 1235, incision time 1335. OPERATIVE INDICATION: Ashlyn Boss is a patient well-known to my practice, a 77-year-old woman, who has undergone successful contralateral left total knee replacement arthroplasty. The patient presents now with severe pain and restricted range of motion of the right knee refractory to conservative approach consisting of antiinflammatory medication, activity modification, and therapy. Pros, cons, risks, and benefits of surgical approach were discussed. The possibility of mechanical failure, infection, thromboembolic disease, secondary or tertiary surgery was discussed. The patient and the family wished the surgery to be accomplished. OPERATIVE PROCEDURE: After having obtained informed consent in the above fashion; after having identified side, site, and procedure and a critical pause/time-out; after the satisfactory induction of the anesthetic, the patient identified as Ashlyn Boss in the supine position with all bony prominences well padded. Left lower extremity was prepped and free draped in usual fashion for lower extremity surgery. The tourniquet had been applied, but was not yet inflated. After exsanguinating the limb using a 6-inch Esmarch bandage, tourniquet which had been applied, was inflated to 350 mmHg on the right knee. A 6-inch straight midline approach was made to the knee. The skin incision was carried down through the skin and subcutaneous tissue. Medial arthrotomy was accomplished. The patella was everted. The knee was flexed. The anterior and posterior cruciate ligaments were excised. Medial and lateral meniscectomies were accomplished. Dissection was carried around posteromedially to the direct head of the semimembranosus tendon. The tibia having been dislocated anteriorly, there was found to be a loose body. The loose body was excised. At this point in time, an anterior and posterior synovectomy was accomplished. There was found to be an exuberant amount of synovial tissue. This having been accomplished, the computer navigation commenced with the anterior strut of the KneeAlign system placed on the anterior aspect of the tibia and affixed with guide pins. The accelerometer and sensor were placed and offset was set to the posterior aspect of the anterior cruciate ligament. This having been accomplished, the knee center and offset having been identified, the lateral malleolus was registered, the medial malleolus was registered, and the cut was set to 0 degrees varus-valgus and 3.5 degrees posterior slope. The cut was set at 8 mm below the more prominent condyle. The tibial osteotomy was accomplished. The tibia was sized to a #2 tibial component. The proximal tibia was prepared with guidance to rotation of the lateral aspect of the tibial condyle, mid malleolar axis, and medial third of the tibial tuberosity. This having been accomplished, the proximal tibia having been prepared, trialing having been accomplished, the attention was turned to the femur. It should be noted that the computer navigation had been employed. After registration of the offset on the tibia, the medial malleolus and lateral malleolus were registered and the cut was accomplished. Attention was turned to the femur. Notch osteophytes and border osteophytes were debrided with a curved osteotome and bur. This having been accomplished, the guide pin was placed above the intercondylar notch. The distal cutting guide was placed. The distal cutting guide was fixed with pins. The accelerometer was placed as was the sensor. Varus-valgus was set to 0 degrees, 0.5 degrees posterior slope. This having been accomplished, the hip center was identified and registered. The offset was registered as well and the position of the distal femoral cutting guide, again with the 0 degrees varus-valgus and 0.5 degrees of flexion, the distal cut was set to 9 mm and pinned in that fashion. The distal cut was accomplished with precision offered by an [facility] retractor, keeping the blade relatively fixed to the bony cut surface. It should be noted at this point in time, an anterior and posterior synovectomy had been accomplished to identify the anterior aspect of the femur and to eliminate inflammatory tissue. The #1.5 femoral component exactly was employed across the epicondylar axis, guide pins were employed, the 4-in-1 block was placed across the epicondylar axis. Anterior and posterior osteotomies were accomplished as well as chamfer cuts. The laminar ferruler was placed. There was found to be posterior capsular contracture with severe osteophytes. The posterior capsule was released. The femoral trial was placed. Lugs were affixed in the appropriate attitude. Reaming was accomplished. At this point in time, the patellofemoral reaming device was applied and the patellofemoral trochlear groove was accomplished. At this point in time, trialing was accomplished with a #1.5 femoral component, #2 tibial tray, and an appropriate-sized tibial polyethylene. Flexion-extension balance was found to be excellent. The knee attained full extension. Attention was turned to the patella. Patella girth was 28 mm. Freehand osteotomy was accomplished. The patella was templated and reamed to a #2 Medacta patellar component. It should be noted that the lateral patellar retinaculum was contracted and released from inside out. The Aquamantys was used to control bleeding from the synovium and the lateral retinaculum. Great care was taken to spare the superior and lateral genicular vessels. The patella was placed. Flexion-extension balance was found to be excellent. No instability. Patella balance was found to be excellent with no evidence of luxation. Trialing having been accomplished, the femur, tibia, and patella were prepared with the Pulsavac and a #1.5 cemented femoral component was applied, #2 cemented tibial tray, appropriate polyethylene tibial, and #2 patella. The wound was thoroughly irrigated. Tourniquet was deflated. Hemostasis was controlled with Aquamantys. Blood loss was approximately 50 mL. Closures in layers with #1Vicryl, 0 Vicryl, 2-0 Vicryl, and maki for skin. No Hemovac was employed. Uzair Edwards compression dressing was applied. Postoperative flexion-extension balance was found to be excellent. Toni Wahl MD [facility] # [id number]
--- NOTE | 2017-10-18 13:38 | CP.PCM.DIS ---
<Moriah Darling - Last Filed: 10/18/17 13:27> Provider - Provider Date of Admission: 10/17/17 13:28 Attending physician: Marcela Ahn DO Primary care physician: Toni Wahl III, MD Time Spent in preparation of Discharge (in minutes): 25 Hospital Course - Lab Results Lab Results: Most Recent Lab Values WBC 7.0 K/uL (4.8-10.8) 10/18/17 06:15 RBC 3.64 Mil/uL (3.80-5.20) L 10/18/17 06:15 Hgb 10.0 g/dL (12.0-16.0) L 10/18/17 06:15 Hct 30.6 % (34.0-47.0) L 10/18/17 06:15 MCV 83.9 fl (81.0-99.0) 10/18/17 06:15 MCH 27.5 pg (27.0-31.0) 10/18/17 06:15 MCHC 32.8 g/dL (33.0-37.0) L 10/18/17 06:15 RDW 15.1 % (11.5-14.5) H 10/18/17 06:15 Plt Count 185 K/uL (130-400) 10/18/17 06:15 Sodium 142 mmol/l (132-148) 10/18/17 06:15 Potassium 3.8 MMOL/L (3.6-5.0) 10/18/17 06:15 Chloride 106 mmol/L (98-107) 10/18/17 06:15 Carbon Dioxide 28 mmol/L (22-30) 10/18/17 06:15 Anion Gap 12 (10-20) 10/18/17 06:15 BUN 12 mg/dl (7-17) 10/18/17 06:15 Creatinine 0.8 mg/dl (0.7-1.2) 10/18/17 06:15 Est GFR ( Amer) > 60 10/18/17 06:15 Est GFR (Non-Af Amer) > 60 10/18/17 06:15 Random Glucose 121 mg/dL (65-105) H 10/18/17 06:15 Calcium 8.3 mg/dL (8.4-10.2) L 10/18/17 06:15 Blood Type O POSITIVE 10/17/17 08:06 Antibody Screen Negative 10/17/17 08:06 BBK History Checked Patient has bt 10/17/17 08:06 - Hospital Course Hospital Course: 77 year old female with PMH HTN, SLE, RA, Hyperlipidemia, and OA, S/P L total knee with Dr. Wahl appx 3 months ago admitted to hospital through ED. Patient underwent R total knee replacement with Dr. Wahl on 10/17 after failing conservative treatment as outpatient.and was readmitted to Med/Surg following the operation. Patient is hemodynamically stable at this time and will be discharged home today. Patient is to continue all at home medications and follow up with Dr. Wahl as an outpatient Discharge Exam - Head Exam Head Exam: NORMAL INSPECTION, NORMOCEPHALIC - Eye Exam Eye Exam: EOMI, Normal appearance, PERRL Pupil Exam: NORMAL ACCOMODATION - ENT Exam ENT Exam: Mucous Membranes Moist, Normal Exam - Neck Exam Neck exam: Full Rom, Normal Inspection - Respiratory Exam Respiratory Exam: NORMAL BREATHING PATTERN, UNREMARKABLE. absent: Rales, Rhonchi, Wheezes - Cardiovascular Exam Cardiovascular Exam: REGULAR RHYTHM - GI/Abdominal Exam GI & Abdominal Exam: Normal Bowel Sounds, Unremarkable. absent: Distended, Firm , Guarding - Rectal Exam Rectal Exam: Deferred - Extremities Exam Extremities exam: normal capillary refill Additional comments: pain appropriate for surgical procedure performed to right knee - Neurological Exam Neurological exam: Alert, Oriented x3 - Psychiatric Exam Psychiatric exam: Normal Affect, Normal Mood - Skin Skin Exam: Normal Color, Warm Discharge Plan - Follow Up Plan Condition: GOOD Disposition: TRANSF TO SNF Instructions: Hypertension (DC), Knee Replacement (DC) Referrals: Toni Wahl III, MD [Primary Care Provider] - <Marcela Ahn - Last Filed: 10/18/17 15:12> Provider - Provider Date of Admission: 10/17/17 13:28 Attending physician: Marcela Ahn DO Primary care physician: Toni Wahl III, MD Hospital Course - Lab Results Lab Results: Most Recent Lab Values WBC 7.0 K/uL (4.8-10.8) 10/18/17 06:15 RBC 3.64 Mil/uL (3.80-5.20) L 10/18/17 06:15 Hgb 10.0 g/dL (12.0-16.0) L 10/18/17 06:15 Hct 30.6 % (34.0-47.0) L 10/18/17 06:15 MCV 83.9 fl (81.0-99.0) 10/18/17 06:15 MCH 27.5 pg (27.0-31.0) 10/18/17 06:15 MCHC 32.8 g/dL (33.0-37.0) L 10/18/17 06:15 RDW 15.1 % (11.5-14.5) H 10/18/17 06:15 Plt Count 185 K/uL (130-400) 10/18/17 06:15 Sodium 142 mmol/l (132-148) 10/18/17 06:15 Potassium 3.8 MMOL/L (3.6-5.0) 10/18/17 06:15 Chloride 106 mmol/L (98-107) 10/18/17 06:15 Carbon Dioxide 28 mmol/L (22-30) 10/18/17 06:15 Anion Gap 12 (10-20) 10/18/17 06:15 BUN 12 mg/dl (7-17) 10/18/17 06:15 Creatinine 0.8 mg/dl (0.7-1.2) 10/18/17 06:15 Est GFR ( Amer) > 60 10/18/17 06:15 Est GFR (Non-Af Amer) > 60 10/18/17 06:15 Random Glucose 121 mg/dL (65-105) H 10/18/17 06:15 Calcium 8.3 mg/dL (8.4-10.2) L 10/18/17 06:15 Blood Type O POSITIVE 10/17/17 08:06 Antibody Screen Negative 10/17/17 08:06 BBK History Checked Patient has bt 10/17/17 08:06 Attending/Attestation - Attestation I have personally seen and examined this patient.: Yes I have fully participated in the care of the patient.: Yes I have reviewed all pertinent clinical information, including history, physical exam and plan: Yes Notes (Text): 10/18/17 15:10 PT SEEN EXAMINED DISCUSSED WITH RESIDENT MORIAH DARLING. S/P R TOTAL KNEE. VTE PPX per ORTHO, will start ASA. Enalpril and prednisone cont'd for HTN, RA/SLE. Pt stable to d/c to [facility].
== END 2017-10-18 15:42 | DRG 470 ==
LOC: H.OPSURG 06:30 → H.MEDSURG1 13:28
PROVIDERS: ADMIT Student in an Organized Health Care Education/Training Program; ATTEND Student in an Organized Health Care Education/Training Program
PROC: 3E0T33Z Introduction of Anti-inflammatory into Peripheral Nerves and Plexi, Percutaneous Approach (ICD-10-PCS; 2017-10-17)
PROC: 0SRC069 Replacement of Right Knee Joint with Oxidized Zirconium on Polyethylene Synthetic Substitute, Cemented, Open Approach (ICD-10-PCS; principal; 2017-10-17 13:15)
PROC: 8E0YXBZ Computer Assisted Procedure of Lower Extremity (ICD-10-PCS; 2017-10-17 13:15)
PROC: 3E0T3BZ Introduction of Anesthetic Agent into Peripheral Nerves and Plexi, Percutaneous Approach (ICD-10-PCS; 2017-10-17 13:15)
PROC: F07Z9FZ Gait Training/Functional Ambulation Treatment using Assistive, Adaptive, Supportive or Protective Equipment (ICD-10-PCS; 2017-10-18)
DX: M17.11 Unilateral primary osteoarthritis, right knee (principal); M65.861 Other synovitis and tenosynovitis, right lower leg; M06.9 Rheumatoid arthritis, unspecified; M32.9 Systemic lupus erythematosus, unspecified; E78.5 Hyperlipidemia, unspecified; I10 Essential (primary) hypertension; Z96.652 Presence of left artificial knee joint